=== PATIENT | male | born 1995 | race Two or more races ===

== ENCOUNTER 2024-09-14 09:46 | Emergency (ER) | payer BC, MEDICAID ==
[2024-09-14 10:36] LABS: Basophils # (auto) 0 10 ^3/uL (0-0.2); Basophils % (auto) 0.8 % (0.0-2.0); Eosinophils # (auto) 0.1 10 ^3/uL (0-0.8); Eosinophils % (auto) 1.3 % (0.0-7.0); Hematocrit 50.5 % (41.0-53.0); Mean Corpuscular Hgb Conc. 33.7 g/dL (32.0-36.0); Mean Corpuscular Volume 94.9 fL (80.0-100.0); Monocytes # (auto) 0.4 10 ^3/uL (0-1.3); Monocytes % (auto) 11.2 % (0.0-12.0); Neutrophils # (auto) 2.4 10 ^3/uL (1.6-8.6); Neutrophils % (auto) 60.7 % (37.0-80.0); Platelet Count (auto) 312 10^3/uL (140-450); Red Blood Cells 5.32 10^6/uL (4.5-5.90); Red Cell Distribution Width 12.9 % (11.8-14.3); White Blood Cell 3.9 10^3/uL (4.4-10.8)
[2024-09-14 10:56] LABS: Alanine Aminotransferase 21 U/L (7-40); Albumin 4.5 g/dL (3.2-4.8); Alkaline Phosphatase 72 U/L (46-116); Anion Gap 7 (5-15); Aspartate Aminotransferase 18 U/L (13-40); BUN/Creatinine Ratio 8.1 (10.0-20.0); Bilirubin, Total 3.1 mg/dL (0.2-1.0); Blood Urea Nitrogen 9 mg/dL (9-23); Calcium 10.1 mg/dL (8.7-10.4); Carbon Dioxide 27 mmol/L (20-31); Chloride 105 mmol/L (98-107); Glucose 131 mg/dL (74-106); Potassium 3.6 mmol/L (3.5-5.1); Sodium 139 mmol/L (136-145); Total Protein 7.2 g/dL (5.7-8.2)
[2024-09-14 11:40] VITALS: PULSE 93; RESP 16; O2SAT 97
[2024-09-14] MEDS: PROPRANOLOL HCL 20 MG TAB PO ONE (12:06)
[2024-09-14 14:00] VITALS: BP 127/86; PULSE 78; RESP 16; TEMP 98.5; O2SAT 97
== END 2024-09-14 14:05 | disposition home or self-care (01) ==
LOC: ER 09:46
DX: R07.9 Chest pain, unspecified (principal); F41.1 Generalized anxiety disorder; R06.02 Shortness of breath; R00.2 Palpitations
CPT/HCPCS: 36415; 71046; 80053; 84484; 85025; 93005